=== PATIENT | female | born 1950 | race Caucasian/White ===

== ENCOUNTER 2016-08-27 18:44 | Inpatient (IN) | payer MEDICARE, OTHER ==
[~2016-08-27] VITALS: Ht 157.5 cm; Wt 56.1 kg
[~2016-08-27 18:44] MED LIST: BENA20TA48 PO; CARAS PO; LEVO75TA5 PO; PANT40TA3 PO; TYL500 PO
--- NOTE | 2016-08-27 21:13 | ERA ---
ER Documentation Chief Complaint Date/Time DATE: 08/27/16 TIME: 21:13 Chief Complaint Chronic abdominal pain HPI The patient is a 75-year-old female, presenting to the ER because of chronic epigastric abdominal pain. She was admitted in October 2015 and had extensive studies included gallbladder ultrasound, abdominal pelvic CT, abdominal pelvic CT angiogram, EGD, colonoscopy that were unremarkable except for gastritis and hemorrhoids. She feels very anxious, denies fever, chills, neck pain, chest pain, dyspnea. Abdominal pain is chronic, diffuse, minimal, no aggravating or relieving factor. She denies nausea, vomiting, dysuria, diarrhea, complaints of constipation. She does not smoke nor drink Past medical history: Hypertension, hypothyroidism, migraine, splenomegaly, GERD , gastritis Past surgical history: 3 ROS All systems reviewed and are negative except as per history of present illness. Medications Home Meds Active Scripts Pantoprazole* (Protonix*) 40 Mg Tablet.dr, 40 MG PO BID for 30 Days, TAB Prov:TIBURC[employer] 10/28/15 Reported Medications Benazepril Hcl* (Benazepril Hcl*) 40 Mg Tablet, 40 MG PO DAILY, #30 TAB 08/27/16 Levothyroxine Sodium* (Levothyroxine Sodium*) 75 Mcg Tablet, 75 MCG PO BEFORE BREAKFAST, #30 TAB 10/24/15 Discontinued Reported Medications Benazepril Hcl* (Benazepril Hcl*) 20 Mg Tablet, 20 MG PO DAILY, #30 TAB 10/24/15 Acetaminophen* (Tylenol*) 500 Mg Tab, 500 MG PO Q4H Y for MILD PAIN LEVEL 1-3, TAB 10/24/15 Discontinued Scripts Sucralfate* (Carafate*) 1 Gm/10 Ml Susp, 1 GM PO QID for 30 Days, EA Prov:TIBUR[employer]IO [employer] 10/28/15 Allergies Allergies: Coded Allergies: No Known Allergies (Verified Allergy, Unknown, 02/20/15) PMhx/Soc History of Surgery: Yes ( x3) Anesthesia Reaction: No Hx Neurological Disorder: No Hx Respiratory Disorders: No Hx Cardiac Disorders: Yes (htn, ) Hx Psychiatric Problems: No Hx Miscellaneous Medical Probl: No (migraine) Hx Alcohol Use: No Hx Substance Use: No Hx Tobacco Use: No Physical Exam Vitals Vital Signs Date Time Temp Pulse Resp B/P Pulse Ox O2 Delivery O2 Flow Rate FiO2 08/28/16 01:00 73 16 132/69 100 Room Air 08/27/16 19:15 98.9 84 20 170/80 97 Physical Exam Const: No acute distress. Head: Atraumatic. Eyes: Normal Conjunctiva. ENT: Normal External Ears, Nose and Mouth. Neck: Full range of motion. No meningismus. Resp: Clear to auscultation bilaterally. Cardio: Regular rate and rhythm. Abd: Soft, non distended, normal bowel sounds, minimal epigastric discomfort, no right lower quadrant, right upper quadrant, CVA, rigidity, rebound tenderness Skin: No petechiae or rashes. Back: No midline or flank tenderness. Ext: No cyanosis, or edema. Neur: Awake and alert. No focal deficit Psych: Normal Mood and Affect. Result Diagram: 08/27/16213308/27/162133 Results 24 hrs Laboratory Tests Test 08/27/16 21:34 08/27/16 21:40 White Blood Count 16.510^3/ul Red Blood Count 4.5510^6/ul Hemoglobin 13.7g/dl Hematocrit 40.9% Mean Corpuscular Volume 89.9fl Mean Corpuscular Hemoglobin 30.1pg Mean Corpuscular Hemoglobin Concent 33.5g/dl Red Cell Distribution Width 12.7% Platelet Count 92500^3/UL Mean Platelet Volume 10.2fl Neutrophils % 59.0% Lymphocytes % 40.0% Monocytes % 1.0% Neutrophils # 9.710^3/ul Lymphocytes # 6.610^3/ul Monocytes # 0.210^3/ul Sodium Level 145mmol/L Potassium Level 4.3mmol/L Chloride Level 103mmol/L Carbon Dioxide Level 28mmol/L Anion Gap 18 Blood Urea Nitrogen 14mg/dl Creatinine 0.72mg/dl Glucose Level 133mg/dl Calcium Level 11.1mg/dl Total Bilirubin 1.1mg/dl Direct Bilirubin 0.00mg/dl Indirect Bilirubin 1.1mg/dl Aspartate Amino Transf (AST/SGOT) 22IU/L Alanine Aminotransferase (ALT/SGPT) 34IU/L Alkaline Phosphatase 88IU/L Total Protein 8.1g/dl Albumin 5.1g/dl Globulin 3.00g/dl Albumin/Globulin Ratio 1.70 Lipase 48U/L Bedside Urine pH (LAB) 5.0 Bedside Urine Protein (LAB) Negative Bedside Urine Glucose (UA) Negative Bedside Urine Ketones (LAB) 1+ Bedside Urine Blood 2+ Bedside Urine Nitrite (LAB) Negative Bedside Urine Leukocyte Esterase (L Negative Current Medications Medications (Trade) Dose Ordered Sig/Melinda Route PRN Reason Start Time Stop Time Status Last Admin Dose Admin Miscellaneous Medication (Gi Cocktail (2)) 40 ml ONCE ONCE PO 08/27/16 22:00 08/27/16 22:01 DC 08/27/16 22:04 Morphine Sulfate (morphine) 2 mg ONCE ONCE IV 08/28/16 01:00 08/28/16 01:01 DC Ondansetron HCl (Zofran Inj) 4 mg ONCE STAT IV 08/28/16 00:42 08/28/16 00:43 DC 08/28/16 01:09 Procedures/[place] [id number] Radiology Main Line: [phone] DIAGNOSTIC IMAGING REPORT Patient: JANIYA DE LEON : 1950 Age: 65 Sex: F MR #: [id number] DOS: 08/27/16 2239 Ordering MD: GREGORIO CHRISTENSEN MD Location: E/R Room/Bed: PROCEDURE: CT abdomen and pelvis without contrast. CLINICAL INDICATION: Epigastric pain TECHNIQUE: CT scan of the abdomen and pelvis without contrast was performed. Sagittal and coronal reformatted images were obtained from the axial source images. CTDI = 7.53 mGy; DLP = 378.69 mGy-cm COMPARISON: Contrast enhanced exam 10/28/2015 FINDINGS: Visualized lower thorax: The lung bases are now clear. There is no evidence for pleural effusion, previously seen effusions have resolved. Liver, gallbladder, pancreas and spleen: The liver is normal and size, contour and attenuation. There is no evidence for a liver mass or ductal dilatation. The gallbladder is unremarkable. No common bile duct abnormality is demonstrated. The pancreas is unremarkable for intrinsic abnormality although there is peripancreatic phlegmon adjacent to the body and tail. Splenomegaly is stable the maximum dimension estimated at 16 cm. There is no obvious splenic infarct, incidental posterior splenic cleft is again noted. Adrenal glands and genitourinary system: The adrenal glands are normal bilaterally. The kidneys are normal and size, contour and attenuation with no evidence for masses, calculi or hydronephrosis. The ureters are unremarkable. No urinary bladder abnormality is demonstrated. The uterus and adnexa are unremarkable for the patient's age. There is a moderate amount of free fluid in the posterior cul-de-sac slightly increased compared to the prior exam. Gastrointestinal system: The stomach is normal in caliber and without wall thickening. Severe thickening of the duodenal wall is present with surrounding inflammatory fat stranding and phlegmon within the right anterior pararenal space.. There is an ileus pattern with prominence of the jejunum the diameter estimated at 3 cm with a gas/fluid level, no complete obstruction is present The appendix and surrounding fat are within the limits of normal. The colon shows no evidence for wall thickening or acute abnormality. There is no evidence for colitis or diverticulitis. Peritoneum, retroperitoneum, lymph nodes and vessels: The abdominal aorta is normal in caliber. There is minimal aortic atherosclerotic calcification. The inferior vena cava is unremarkable. Claudia hepatis adenopathy is worse, a national sales representative lymph node estimated now at 1.4 cm, previously 1 cm. Additional 1 cm short axis retroperitoneal lymph nodes are more prominent than previously. Pelvic ascites is again mentioned, no upper abdominal ascites is seen. There is no evidence of pneumoperitoneum. Osseous structures and musculoskeletal findings: There is no fracture, lytic or blastic lesion, degenerative anterolisthesis of 06/23 from facet arthropathy is again noted. No muscular abnormality or soft tissue pathology is present. Incidental gluteal fat calcifications are demonstrated RPTAT:HJJR IMPRESSION: 1. Severe stranding of the fat surrounding the duodenum with wall thickening and increased adenopathy in the upper abdomen, retroperitoneum and claudia hepatis compared to the study of 10/28/2015. Duodenitis and / or pancreatitis are of concern without underlying duodenal mass unable to be excluded. Short- term follow-up is recommended. 2. Moderate amount of free fluid in the pelvis similar to the prior examination. 3. Jejunal ileus without bowel obstruction. 4. Stable splenomegaly. 5. Resolved bibasilar subsegmental atelectasis and pleural effusions. Physician Percy Date Time Electronically viewed and signed by Frederic Hussein Physician on 08/27/2016 23:45 JR/ CC: GREGORIO CHRISTENSEN MD MEDICAL MAKING DECISION: The patient is a 65-year-old female, presenting with acute abdominal pain, most likely due to recurrent acute duodenitis, acute hypercalcemia, thrombocytopenia. She was treated with a GI cocktail, morphine 2 mg IV for pain and Zofran 4 mg IV for nausea with good response. The differential diagnoses considered include but are not limited to cholelithiasis, cholecystitis, cystitis, pancreatitis, hepatitis, gastritis, peptic ulcer disease, gastric ulcer, appendicitis, diverticulitis, cholangitis, choledocholithiasis, partial small bowel obstruction. Departure Diagnosis: Primary Impression: Duodenitis Additional Impressions: Hypercalcemia Thrombocytopenia Condition: Stable Comments I discussed the findings with the patient. I discussed the patient with the on- call hospitalist Dr. Lira at 12:40 AM who was made aware of the lab, the treatment, the patient condition. The patient is admitted to medical surgery bed GREGORIO CHRISTENSEN MD Aug 27, 2016 21:13
[2016-08-27] MEDS ORDERED: BENA40TA41 PO (21:35)
[2016-08-27 21:38] LABS: URINE BLOOD (Dip) POC 2+ (NEGATIVE)
[2016-08-27 21:48] LABS: ADD SCAN DIFF NO
[2016-08-27 21:55] LABS: ABNORMAL IP MESSAGE 1; HEMATOCRIT 40.9 % (37.0-47.0); HEMOGLOBIN 13.7 g/dl (12.0-16.0); MEAN CORPUSCULAR HEMOGLOBIN 30.1 pg (29.0-33.0); MEAN CORPUSCULAR HGB CONC 33.5 g/dl (32.0-37.0); MEAN CORPUSCULAR VOLUME 89.9 fl (82.0-101.0); MEAN PLATELET VOLUME 10.2 fl (7.4-10.4); PLATELET COUNT 125 10^3/UL (140-415); RED BLOOD COUNT 4.55 10^6/ul (4.20-5.40); RED CELL DISTRIBUTION WIDTH 12.7 % (11.5-14.5); WHITE BLOOD COUNT 16.5 10^3/ul (4.8-10.8)
[2016-08-27] MEDS ORDERED: LIDOCAINE/MYLANTA 40 ML BTL PO ONE (22:00)
[2016-08-27 22:14] LABS: ALBUMIN 5.1 g/dl (3.3-4.9); ALBUMIN/GLOBULIN RATIO 1.7; BILIRUBIN,INDIRECT 1.1 mg/dl (0-1.1); BILIRUBIN,TOTAL 1.1 mg/dl (0.2-1.3); CALCIUM 11.1 mg/dl (8.4-10.2); CREATININE 0.72 mg/dl (0.44-1.00); POTASSIUM 4.3 mmol/L (3.5-5.1); TOTAL PROTEIN 8.1 g/dl (6.1-8.1)
[2016-08-27 22:44] LABS: LYMPHOCYTES # 6.6 10^3/ul (0.8-2.9); MONOCYTE # 0.2 10^3/ul (0.3-0.9); NEUTROPHIL # 9.7 10^3/ul (1.6-7.5)
--- NOTE | 2016-08-27 23:45 | RADRPT ---
PROCEDURE: CT abdomen and pelvis without contrast. CLINICAL INDICATION: Epigastric pain TECHNIQUE: CT scan of the abdomen and pelvis without contrast was performed. Sagittal and coronal reformatted images were obtained from the axial source images. CTDI = 7.53 mGy; DLP = 378.69 mGy-cm COMPARISON: Contrast enhanced exam 10/28/2015 FINDINGS: Visualized lower thorax: The lung bases are now clear. There is no evidence for pleural effusion, previously seen effusions have resolved. Liver, gallbladder, pancreas and spleen: The liver is normal and size, contour and attenuation. Th ere is no evidence for a liver mass or ductal dilatation. The gallbladder is unremarkable. No comm on bile duct abnormality is demonstrated. The pancreas is unremarkable for intrinsic abnormality al though there is peripancreatic phlegmon adjacent to the body and tail. Splenomegaly is stable the m aximum dimension estimated at 16 cm. There is no obvious splenic infarct, incidental posterior sple bessy cleft is again noted. Adrenal glands and genitourinary system: The adrenal glands are normal bilaterally. The kidneys are normal and size, contour and attenuation with no evidence for masses, calculi or hydronephrosis. T he ureters are unremarkable. No urinary bladder abnormality is demonstrated. The uterus and adnexa are unremarkable for the patient's age. There is a moderate amount of free fluid in the posterior cul-de-sac slightly increased compared to the prior exam. Gastrointestinal system: The stomach is normal in caliber and without wall thickening. Severe thic kening of the duodenal wall is present with surrounding inflammatory fat stranding and phlegmon with in the right anterior pararenal space.. There is an ileus pattern with prominence of the jejunum th e diameter estimated at 3 cm with a gas/fluid level, no complete obstruction is present The appendi x and surrounding fat are within the limits of normal. The colon shows no evidence for wall thicken ing or acute abnormality. There is no evidence for colitis or diverticulitis. Peritoneum, retroperitoneum, lymph nodes and vessels: The abdominal aorta is normal in caliber. The re is minimal aortic atherosclerotic calcification. The inferior vena cava is unremarkable. Claudia h epatis adenopathy is worse, a corporate sales representative lymph node estimated now at 1.4 cm, previously 1 cm. A dditional 1 cm short axis retroperitoneal lymph nodes are more prominent than previously. Pelvic as cites is again mentioned, no upper abdominal ascites is seen. There is no evidence of pneumoperiton eum. Osseous structures and musculoskeletal findings: There is no fracture, lytic or blastic lesion, deg enerative anterolisthesis of 06/23 from facet arthropathy is again noted. No muscular abnormality o r soft tissue pathology is present. Incidental gluteal fat calcifications are demonstrated RPTAT:HJJR IMPRESSION: 1. Severe stranding of the fat surrounding the duodenum with wall thickening and increased adenopath y in the upper abdomen, retroperitoneum and claudia hepatis compared to the study of 10/28/2015. Duod enitis and / or pancreatitis are of concern without underlying duodenal mass unable to be excluded. Short-term follow-up is recommended. 2. Moderate amount of free fluid in the pelvis similar to the prior examination. 3. Jejunal ileus without bowel obstruction. 4. Stable splenomegaly. 5. Resolved bibasilar subsegmental atelectasis and pleural effusions. Physician Percy Date Time Electronically viewed and signed by Physician Percy on 08/27/2016 23:45 /
[2016-08-28] MEDS ORDERED: ONDANSETRON 4 MG INJ IV STA (00:42)
[2016-08-28] MEDS ORDERED: morphine 2 MG INJ IV ONE (01:00)
[2016-08-28 01:34] VITALS: BP 159/71; RESP 18
[2016-08-28 01:41] VITALS: Ht 157.5 cm; Wt 56.1 kg
[2016-08-28] MEDS: SOD CHLORIDE 0.9% 1,000 ML IV SCH ×2 (03:48→19:01)
[2016-08-28] MEDS: ACETAMINOPHEN 325 MG TAB PO PRN ×4 (03:54→23:07)
[2016-08-28] MEDS ORDERED: morphine 4 MG/ML VIAL IV PRN (04:00)
[2016-08-28] MEDS ORDERED: morphine 2 MG INJ IV PRN (04:00)
[2016-08-28] MEDS ORDERED: NACL 0.9% 3 ML SYG IV SCH (04:00)
[2016-08-28] MEDS: metroNIDAZOLE 500 MG/NS (PMX) 100 ML IVPB SCH ×3 (04:21→20:17)
[2016-08-28] MEDS: PANTOPRAZOLE (EC) 40 MG TAB PO SCH ×2 (05:54→19:01)
[2016-08-28] MEDS: LEVOFLOXACIN 500MG/D5W (PMX) 100 ML IVPB SCH (05:54)
[2016-08-28 06:11] LABS: ADD SCAN DIFF NO
--- NOTE | 2016-08-28 06:13 | HP ---
DATE OF ADMISSION: 08/28/2016 TIME SEEN: 3 a.m. CHIEF COMPLAINT: Abdominal pain. HISTORY OF PRESENT ILLNESS: The patient is a 65-year-old female with a history of hypertension, dysl ipidemia, GERD/gastritis, hypothyroidism, dyslipidemia and duodenitis, who presented to the emergenc y department with abdominal pain. The patient stated that she has chronic abdominal pain, but this particular laparoscopic episode acutely worsened over the past few days. She reported associated na usea as well. She was also diagnosed with a UTI 3 days ago and has been prescribed Keflex, but she has not started taking it yet. She also reported feeling feverish and chills. The patient has been admitted here a few times for abdominal pain and previously had a CT abdomen and pelvis twice, one in 2014 and one in 2015. The first one in 2014 showed focal wall thickening involving the distal ri ght colon and proximal left colon, suspicious for colitis versus annular lesion/neoplasm. Her secon d CAT scan was in November of 2015, which showed mural thickening involving the duodenum, concernin g for duodenitis. Also abnormal mural thickening involving several small bowel loops with inflammat ion of the subtending mesentery was identified in the pelvis. Also a moderate amount of free fluid in the pelvis was noted, as well as borderline to mild enlarged lymph nodes in the claudia hepatis an d retroperitoneum. Today she had a CT abdomen and pelvis without contrast which showed several stra nding of the fat surrounding the duodenum with wall thickening and increased adenopathy in the upper abdomen, retroperitoneum and claudia hepatis compared to the study from November of 2015. Duodeniti s and/or pancreatitis are of concern, without underlying duodenal mass unable to be excluded. A mod erate amount of free fluid in the pelvis similar to the prior examination was also noted. Her splen omegaly is stable. When she came in, her blood pressure was 170/80, otherwise the rest of her vitals were stable. Labs show a WBC of 16.5, sodium 145, calcium 11.1, with albumin of 5.1. Patient was given morphine and Zofran while she was in the ER, as well as a liter of IV fluid, and admitted for further management and treatment. REVIEW OF SYSTEMS: A 12-point review of systems was performed and negative except as mentioned in t he HPI. PAST MEDICAL HISTORY: As per HPI. PAST SURGICAL HISTORY: . SOCIAL HISTORY: Denied a history of tobacco, alcohol or illicit drug use. ALLERGIES: NO KNOWN DRUG ALLERGIES. HOME MEDICATIONS: 1. Benazepril 2. Protonix. 3. Synthroid. PHYSICAL EXAMINATION: VITAL SIGNS: Blood pressure 115/71, heart rate 78, respiratory rate 18, temperature 98.3, oxygen sa turation 98% on room air. GENERAL: The patient looks somehow uncomfortable because of abdominal pain. HEENT: No obvious head deformity. Pupils are equal and react to light. Extraocular muscles intact. CARDIOVASCULAR: Regular rate and rhythm. No extra sounds. LUNGS: Clear. ABDOMEN: Soft, tender diffusely, with no guarding, no rebound tenderness or rigidity. There are po sitive bowel sounds. EXTREMITIES: No edema. NEUROLOGIC: No focal deficits. LABORATORY DATA: Pertinent positives as mentioned in the HPI. IMAGING: CT abdomen and pelvis from today, as well as from 2014 and 2015, are with results as menti oned in the HPI. IMPRESSION: 1. Acute on chronic abdominal pain. 2. Duodenitis/enteritis. 3. History of gastroesophageal reflux disease/gastritis. 4. Hypertension. 5. Dyslipidemia. 6. History of hypothyroidism. 7. Hypercalcemia. PLAN: The patient's abdominal pain is most likely secondary to recurrent or unresolved duodenitis/e nteritis. Her lipase is normal at 48, to suggest pancreatitis. The patient had an EGD in November of 2015 which showed severe gastritis, but the duodenum to the 3rd portion was normal on the EGD. Plan is to start her on an antibiotic and provide pain medication. I will order a CT enterography t o get high resolution imaging of the small intestine. Will consider consulting gastroenterology. A biopsy for H. pylori in 2015 was negative. The patient will be continued with a PPI. Will follow up on culture results, given the patient meets the sepsis criteria on presentation. Will continue h er home medications, with adjustment as needed. Also of note, the patient has hypercalcemia, which is known to cause abdominal pain. Will check a PTH and recheck her labs in the morning. Will consi ariel an endocrinology consult as needed. The antibiotic patient is going to be on will also address her recently diagnosed UTI, and as mentioned, will follow up on blood culture and urine culture resu lts. Further workup and management per clinical course. Dictated By: TG WEIR/ALLY Conf#: [id number] DID#: [id number]
[2016-08-28 06:28] LABS: ABNORMAL IP MESSAGE 1; HEMATOCRIT 38.9 % (37.0-47.0); HEMOGLOBIN 12.8 g/dl (12.0-16.0); MEAN CORPUSCULAR HEMOGLOBIN 29.8 pg (29.0-33.0); MEAN CORPUSCULAR HGB CONC 32.9 g/dl (32.0-37.0); MEAN CORPUSCULAR VOLUME 90.5 fl (82.0-101.0); MEAN PLATELET VOLUME 10.5 fl (7.4-10.4); PLATELET COUNT 115 10^3/UL (140-415); RED CELL DISTRIBUTION WIDTH 12.9 % (11.5-14.5); WHITE BLOOD COUNT 13.8 10^3/ul (4.8-10.8)
[2016-08-28] MEDS: LEVOTHYROXINE 75 MCG TAB PO SCH (06:34)
[2016-08-28 07:22] LABS: ALBUMIN 4.2 g/dl (3.3-4.9); ALBUMIN/GLOBULIN RATIO 1.9; BILIRUBIN,INDIRECT 1.1 mg/dl (0-1.1); BILIRUBIN,TOTAL 1.1 mg/dl (0.2-1.3); CALCIUM 10.2 mg/dl (8.4-10.2); CREATININE 0.75 mg/dl (0.44-1.00); MAGNESIUM 2.1 mg/dl (1.7-2.5); PHOSPHORUS 3.4 mg/dl (2.5-4.9); POTASSIUM 4.7 mmol/L (3.5-5.1); TOTAL PROTEIN 6.4 g/dl (6.1-8.1)
[2016-08-28 07:53] VITALS: BP 107/63; RESP 18
[2016-08-28] MEDS: BENAZEPRIL 40 MG TAB PO SCH (09:00)
[2016-08-28] MEDS ORDERED: CIPROFLOXACIN 400MG/D5W 200 ML IVPB SCH (09:00)
[2016-08-28 09:36] LABS: LYMPHOCYTES # 5.8 10^3/ul (0.8-2.9); MONOCYTE # 1.2 10^3/ul (0.3-0.9); NEUTROPHIL # 6.6 10^3/ul (1.6-7.5)
[2016-08-28 20:00] VITALS: BP 117/61; RESP 18
[2016-08-29] MEDS: metroNIDAZOLE 500 MG/NS (PMX) 100 ML IVPB SCH ×3 (05:06→20:58)
[2016-08-29 05:19] LABS: ADD SCAN DIFF NO
[2016-08-29 05:22] LABS: ABNORMAL IP MESSAGE 1; HEMATOCRIT 34.7 % (37.0-47.0); HEMOGLOBIN 11.5 g/dl (12.0-16.0); MEAN CORPUSCULAR HEMOGLOBIN 30.4 pg (29.0-33.0); MEAN CORPUSCULAR HGB CONC 33.1 g/dl (32.0-37.0); MEAN CORPUSCULAR VOLUME 91.8 fl (82.0-101.0); MEAN PLATELET VOLUME 10.3 fl (7.4-10.4); PLATELET COUNT 96 10^3/UL (140-415); RED BLOOD COUNT 3.78 10^6/ul (4.20-5.40); RED CELL DISTRIBUTION WIDTH 12.9 % (11.5-14.5); WHITE BLOOD COUNT 11.7 10^3/ul (4.8-10.8)
[2016-08-29 06:03] LABS: CALCIUM 9.9 mg/dl (8.4-10.2); CREATININE 0.74 mg/dl (0.44-1.00); MAGNESIUM 2.1 mg/dl (1.7-2.5); PHOSPHORUS 2.7 mg/dl (2.5-4.9); POTASSIUM 4.4 mmol/L (3.5-5.1)
[2016-08-29] MEDS: LEVOTHYROXINE 75 MCG TAB PO SCH (06:06)
[2016-08-29] MEDS: PANTOPRAZOLE (EC) 40 MG TAB PO SCH ×2 (06:06→17:25)
[2016-08-29] MEDS: ACETAMINOPHEN 325 MG TAB PO PRN ×2 (06:08→21:00)
[2016-08-29] MEDS: LEVOFLOXACIN 500MG/D5W (PMX) 100 ML IVPB SCH (06:09)
[2016-08-29] MEDS: ONDANSETRON 4 MG INJ IV PRN ×2 (07:47→20:58)
[2016-08-29 08:32] VITALS: BP 128/69; RESP 16
[2016-08-29] MEDS: BENAZEPRIL 40 MG TAB PO SCH (08:52)
[2016-08-29 09:51] LABS: LYMPHOCYTES # 8.5 10^3/ul (0.8-2.9); MONOCYTE # 0.4 10^3/ul (0.3-0.9); NEUTROPHIL # 2.8 10^3/ul (1.6-7.5)
--- NOTE | 2016-08-29 11:16 | CONS ---
Date/Time of Note Date/Time of Note DATE: 08/29/16 TIME: 10:49 Assessment/Plan Assessment/Plan Additional Assessment/Plan Assessment * Abdominal pain chronic(?) CT abdomen /Pelvis Severe stranding of the fat surrounding the duodenum with wall thickening and increased adenopathy in the upper abdomen, retroperitoneum and claudia hepatis compared to the study of 10/28/2015. Duodenitis and / or pancreatitis are of concern without underlying duodenal mass unable to be . excluded Moderate amount of free fluid in the pelvis similar to the prior examination. . Jejunal ileus without bowel obstruction. Stable splenomegaly. * Hypertension * History of hypothyroidism Plan * EGD Tuesday risks and benefit explained to patient and agreed with the planned procedure * MRCP * PPI daily * Further recommendation will depend on clinical course Consultation Date/Type/Reason Admit Date/Time Aug 28, 2016 at 13:05 Date of Consultation: Aug 29, 2016 Type of Consultation: Gastroenterology Reason for Consultation duodenitis Referring Provider: SHASTA JACKSON Hx of Present Illness 65 year old female with past medical history of hypertension,hypothyroidism, dyslipidemia,GERD/gastritis and duodenitis who presented in our emergency room because of abdominal pain.She claims that the pain is a chronic ,occurring on and ff with associated nausea and vomiting.She claims that her condition becoming worse 3 days ago promoting consultation at the emergency room.She denies chest pain,shortness of breath,fever ,hematemesis,melena nor hematochezias.She had multiple admission ,the latest was October 2015 where an EGD revealed Severe gastritis, rule out Helicobacter pylori infection, biopsies obtained. Normal duodenum to the 3rd portion.Colonoscopy results Normal colonic mucosa to cecum. Random biopsies obtained, rule out microscopic lymphocytic or collagenous colitis.Normal terminal ileum.Moderate size internal hemorrhoids.Ct enterography 10/2015 revealed 1. Mild atelectasis at the lung bases posteriorly. 2. Small bilateral pleural effusions, new when compared with prior study. 3. Splenomegaly, unchanged. 4. Atherosclerosis. 5. Multiple mildly enlarged retroperitoneal lymph nodes and claudia hepatis lymph nodes, unchanged. 6. Diffuse thickening of the wall of the duodenum, unchanged. 7. Thickening of the wall of the small bowel seen on the prior study is no longer visualized. 8. Small amount of free fluid in the pelvis. 9. Degenerative changes of the spine. 10. Otherwise unremarkable study. Emergency room course,a repeat CT scan showed 1. Severe stranding of the fat surrounding the duodenum with wall thickening and increased adenopathy in the upper abdomen, retroperitoneum and claudia hepatis compared to the study of 10/28/2015. Duodenitis and / or pancreatitis are of concern without underlying duodenal mass unable to be excluded. Short- term follow-up is recommended. 2. Moderate amount of free fluid in the pelvis similar to the prior examination. 3. Jejunal ileus without bowel obstruction. 4. Stable splenomegaly. 5. Resolved bibasilar subsegmental atelectasis and pleural effusions. Presently,abdominal pain improved ,no nausea nor vomiting.Latest WBC 11.7, hemoglobin 11.5,Hematocrit 34.7,AST 18,ALT 25 and alkaline phosphatase 65. I have discussed with the patient the planned to d EGD tomorrow and MRI of abdomen Constitutional: improved, no complaints Eyes: no complaints ENT: no complaints Respiratory: no complaints Cardiovascular: no complaints Gastrointestinal: nausea, pain, vomiting Genitourinary: no complaints Musculoskeletal: no complaints Skin: no complaints Neurologic: no complaints Endocrine: no complaints Lymphatic: no complaints Psychological: nl mood/affect, no complaints Immunologic: no complaints Past Medical History Medical History: GERD, hypertension, hypothyroid, urinary tract infection, other (duodenitis) Past Surgical History Past Surgical Hx: endoscopy Family History Significant Family History: no pertinent family hx Social History Alcohol Use: none Smoking Status: Never smoker Exam/Review of Systems Vital Signs Vitals Vital Signs Date Time Temp Pulse Resp B/P Pulse Ox O2 Delivery O2 Flow Rate FiO2 08/29/16 08:32 98.2 76 16 128/69 97 08/28/16 01:00 Room Air Intake and Output 08/28/16 08/28/16 08/29/16 15:00 23:00 07:00 Intake Total 100 ml 1670 ml 640 ml Output Total 1000 ml Balance 100 ml 670 ml 640 ml Exam Constitutional: alert, oriented, well developed Psych: nl mood/affect Head: atraumatic, normocephalic Eyes: PERRL, nl conjunctiva, nl sclera ENMT: nl nasal mucosa & septum Neck: non-tender, supple Respiratory: clear to auscultation, normal air movement Cardiovascular: nl pulses, regular rate and rhythm Gastrointestinal: nl liver, spleen, non-tender, soft Musculoskeletal: nl extremities to inspection, nl gait and stance Extremities: normal pulses Neurological: nl mental status, nl speech, nl strength Skin: nl turgor, No rash or lesions Lymph: nl lymph nodes Results Result Diagram: 08/29/1643908/29/16 0440 Results 24 hrs Laboratory Tests Test 08/29/16 04:40 White Blood Count 11.7 H Red Blood Count 3.78 L Hemoglobin 11.5 L Hematocrit 34.7 L Mean Corpuscular Volume 91.8 Mean Corpuscular Hemoglobin 30.4 Mean Corpuscular Hemoglobin Concent 33.1 Red Cell Distribution Width 12.9 Platelet Count 96 L Mean Platelet Volume 10.3 Neutrophils % 24.0 L Lymphocytes % 73.0 H Monocytes % 3.0 Neutrophils # 2.8 Lymphocytes # 8.5 H Monocytes # 0.4 Sodium Level 144 Potassium Level 4.4 Chloride Level 110 Carbon Dioxide Level 28 Anion Gap 10 Blood Urea Nitrogen 12 Creatinine 0.74 Glucose Level 98 Calcium Level 9.9 Phosphorus Level 2.7 Magnesium Level 2.1 Medications Medications Current Medications Ondansetron HCl (Zofran Inj) 4 mg Q6H PRN IV NAUSEA AND/OR VOMITING Last administered on 08/29/16 07:47; Admin Dose 4 MG; Start 08/28/16 at 04:00 Acetaminophen (Tylenol Tab) 650 mg Q6H PRN PO PAIN LEVEL 1-3 OR FEVER Last administered on 08/29/16 06:08; Admin Dose 650 MG; Start 08/28/16 at 04:00 Benazepril HCl (Lotensin) 40 mg DAILY PO ; Start 08/28/16 at 09:00 Pantoprazole 40 mg 40 mg BID@06,18 PO Last administered on 08/29/16 06:06; Admin Dose 40 MG; Start 08/28/16 at 06:00 Metronidazole (Flagyl 500 Mg (Pmx)) 100 ml @ 100 mls/hr Q8H IVPB Last administered on 08/29/16 05:06; Admin Dose 100 MLS/HR; Start 08/28/16 at 05:00 Morphine Sulfate 4 mg 4 mg Q4H PRN IV SEVERE PAIN LEVEL 7-10; Start 08/28/16 at 04:00 Levofloxacin/ Dextrose (Levaquin 500mg/ D5W 100 ml (Pmx)) 100 ml @ 100 mls/hr Q24H IVPB Last administered on 6/11/17at 06:09; Admin Dose 100 MLS/HR; Start at 06:00 COOPER TORRES MD Aug 29, 2016 10:59
--- NOTE | 2016-08-29 11:21 | PN ---
Date/Time of Note Date/Time of Note DATE: 08/29/16 TIME: 11:18 Assessment/Plan VTE Prophylaxis VTE Prophylaxis Intervention: SCD's Lines/Catheters IV Catheter Type (from Nrsg): Peripheral IV Assessment/Plan Chief Complaint/Hosp Course 1. Acute on chronic abdominal pain secondary to duodenitis GI consult appreciated, plan is for EGD tomorrow Continue Levaquin and Flagyl 2. Hypertension Continue home benazepril 3. History of gastroesophageal reflux disease/gastritis Continue home Protonix 4. History of hypothyroidism Continue home Synthroid 5. Hypercalcemia-resolved Prophylaxis: SCDs Problems: Subjective 24 Hr Interval Summary Gastrointestinal: pain Exam/Review of Systems Vital Signs Vitals Vital Signs Date Time Temp Pulse Resp B/P Pulse Ox O2 Delivery O2 Flow Rate FiO2 08/29/16 08:32 98.2 76 16 128/69 97 08/28/16 01:00 Room Air Intake and Output 08/28/16 08/28/16 08/29/16 15:00 23:00 07:00 Intake Total 100 ml 1670 ml 640 ml Output Total 1000 ml Balance 100 ml 670 ml 640 ml Exam Constitutional: alert, oriented Respiratory: clear to auscultation Cardiovascular: regular rate and rhythm Gastrointestinal: soft, tender, No distended Musculoskeletal: nl extremities to inspection Results Result Diagram: 08/29/16 0440 08/29/16 0440 Results 24 hrs Laboratory Tests Test 08/29/16 04:40 White Blood Count 11.7 H Red Blood Count 3.78 L Hemoglobin 11.5 L Hematocrit 34.7 L Mean Corpuscular Volume 91.8 Mean Corpuscular Hemoglobin 30.4 Mean Corpuscular Hemoglobin Concent 33.1 Red Cell Distribution Width 12.9 Platelet Count 96 L Mean Platelet Volume 10.3 Neutrophils % 24.0 L Lymphocytes % 73.0 H Monocytes % 3.0 Neutrophils # 2.8 Lymphocytes # 8.5 H Monocytes # 0.4 Sodium Level 144 Potassium Level 4.4 Chloride Level 110 Carbon Dioxide Level 28 Anion Gap 10 Blood Urea Nitrogen 12 Creatinine 0.74 Glucose Level 98 Calcium Level 9.9 Phosphorus Level 2.7 Magnesium Level 2.1 Medications Medications Current Medications Ondansetron HCl (Zofran Inj) 4 mg Q6H PRN IV NAUSEA AND/OR VOMITING Last administered on 08/29/16t 07:47; Admin Dose 4 MG; Start 08/28/16 at 04:00 Acetaminophen (Tylenol Tab) 650 mg Q6H PRN PO PAIN LEVEL 1-3 OR FEVER Last administered on 08/29/16 06:08; Admin Dose 650 MG; Start 08/28/16 at 04:00 Benazepril HCl (Lotensin) 40 mg DAILY PO ; Start 08/28/16 at 09:00 Pantoprazole 40 mg 40 mg BID@06,18 PO Last administered on 08/29/16 06:06; Admin Dose 40 MG; Start 08/28/16 at 06:00 Metronidazole (Flagyl 500 Mg (Pmx)) 100 ml @ 100 mls/hr Q8H IVPB Last administered on 08/29/16 05:06; Admin Dose 100 MLS/HR; Start 08/28/16 at 05:00 Morphine Sulfate 4 mg 4 mg Q4H PRN IV SEVERE PAIN LEVEL 7-10; Start 08/28/16 at 04:00 Levofloxacin/ Dextrose (Levaquin 500mg/ D5W 100 ml (Pmx)) 100 ml @ 100 mls/hr Q24H IVPB Last administered on 08/29/16 06:09; Admin Dose 100 MLS/HR; Start at 06:00 SHASTA JACKSON Aug 29, 2016 11:21
--- NOTE | 2016-08-29 14:31 | RADRPT ---
PROCEDURE: MRCP. CLINICAL INDICATION: Right upper quadrant pain. TECHNIQUE: MRCP was performed on the a high-resolution, high Jelena field strength scanner. Patien t was examined without contrast. 3-D coronal rotating MIP images of the biliary tree are available for review. COMPARISON: CT abdomen and pelvis 08/27/2016. FINDINGS: Gallbladder is unremarkable. The biliary tree is not dilated. No intrahepatic nor extrahepatic bili robyn dilatation is present. No filling defect or choledocholithiasis is seen. There is no stricture o r obstruction. The pancreatic duct, as visualized, is equally unremarkable. There has been significa nt interval improvement of inflammatory changes centered around the third portion of the duodenum/un cinate process of the pancreas. There is moderate splenomegaly. Multiple mildly enlarged lymph nod es in the upper abdomen are again identified. IMPRESSION: 1. No biliary ductal dilatation. No CBD stones. No gallstones. 2. Significant interval improvement of inflammatory changes centered around the third portion of th e duodenum/uncinate process of the pancreas. 3. Moderate splenomegaly. 4. Unchanged multiple mildly enlarged lymph nodes in the upper abdomen. RPTAT: PP .Keena Heart MD, Date Time Electronically viewed and signed by .Keena Heart MD, on 08/29/2016 14:31 .O/
[2016-08-29 19:45] VITALS: BP 133/66; RESP 16
[2016-08-30] VITALS (13 sets, daily range): BP systolic 118–165; BP diastolic 61–76; PULSE 70–87; RESP 13–20
[2016-08-30] MEDS: metroNIDAZOLE 500 MG/NS (PMX) 100 ML IVPB SCH ×3 (04:32→20:11)
[2016-08-30] MEDS: LEVOFLOXACIN 500MG/D5W (PMX) 100 ML IVPB SCH (05:49)
[2016-08-30] MEDS: ACETAMINOPHEN 325 MG TAB PO PRN ×2 (05:54→20:11)
[2016-08-30] MEDS: PANTOPRAZOLE (EC) 40 MG TAB PO SCH ×2 (05:54→18:32)
[2016-08-30] MEDS: ONDANSETRON 4 MG INJ IV PRN ×2 (05:58→20:11)
[2016-08-30 06:11] LABS: ADD SCAN DIFF NO
[2016-08-30 06:15] LABS: ABNORMAL IP MESSAGE 1; HEMATOCRIT 33.7 % (37.0-47.0); HEMOGLOBIN 11.2 g/dl (12.0-16.0); MEAN CORPUSCULAR HEMOGLOBIN 30.4 pg (29.0-33.0); MEAN CORPUSCULAR HGB CONC 33.2 g/dl (32.0-37.0); MEAN CORPUSCULAR VOLUME 91.6 fl (82.0-101.0); MEAN PLATELET VOLUME 10.5 fl (7.4-10.4); PLATELET COUNT 98 10^3/UL (140-415); RED BLOOD COUNT 3.68 10^6/ul (4.20-5.40); RED CELL DISTRIBUTION WIDTH 12.9 % (11.5-14.5); WHITE BLOOD COUNT 11.4 10^3/ul (4.8-10.8)
[2016-08-30] MEDS: LEVOTHYROXINE 75 MCG TAB PO SCH (06:35)
[2016-08-30] MEDS: BENAZEPRIL 40 MG TAB PO SCH (08:27)
[2016-08-30 09:54] LABS: LYMPHOCYTES # 7.1 10^3/ul (0.8-2.9); MONOCYTE # 0.1 10^3/ul (0.3-0.9); NEUTROPHIL # 3.8 10^3/ul (1.6-7.5)
[2016-08-30 10:03] LABS: CALCIUM 10.4 mg/dl (8.4-10.2); CREATININE 0.75 mg/dl (0.44-1.00); POTASSIUM 4.4 mmol/L (3.5-5.1)
[2016-08-30] MEDS ORDERED: PROPOFOL 40 ML ONE (17:00)
[2016-08-30] MEDS ORDERED: ALBUTEROL 0.083% (NEB) 2.5 MG/3 ML AMP ONE (17:25)
[2016-08-30] MEDS ORDERED: DEXAMETHASONE 4 MG/ML 1 ML INJ ONE (17:37)
[2016-08-30] MEDS ORDERED: HYOSCYAMINE 0.125 MG SUBL TAB SL PRN (18:30)
--- NOTE | 2016-08-30 19:17 | PN ---
Date/Time of Note Date/Time of Note DATE: 08/30/16 TIME: 19:16 Assessment/Plan VTE Prophylaxis VTE Prophylaxis Intervention: SCD's Lines/Catheters IV Catheter Type (from Nrsg): Peripheral IV Assessment/Plan Assessment/Plan 1. Acute on chronic abdominal pain secondary to duodenitis S/p GI consult, plan for EGD today Continue Levaquin and Flagyl 2. Hypertension Continue home benazepril 3. History of gastroesophageal reflux disease/gastritis Continue home Protonix 4. History of hypothyroidism Continue home Synthroid 5. Hypercalcemia-resolved Plan for EGD today Prophylaxis: SCDs Exam/Review of Systems Vital Signs Vitals Vital Signs Date Time Temp Pulse Resp B/P Pulse Ox O2 Delivery O2 Flow Rate FiO2 08/30/16 17:44 72 15 134/68 96 Room Air 08/30/16 17:23 98.0 08/30/16 17:06 12 Intake and Output 08/29/16 08/29/16 08/30/16 15:00 23:00 07:00 Intake Total 100 ml 860 ml 500 ml Balance 100 ml 860 ml 500 ml Exam Constitutional: alert, oriented Respiratory: clear to auscultation Cardiovascular: regular rate and rhythm Gastrointestinal: soft, tender, No distended Musculoskeletal: nl extremities to inspection Results Result Diagram: 08/30/16 0445 08/30/16 0445 Results 24 hrs Laboratory Tests Test 08/30/16 04:45 White Blood Count 11.4 H Red Blood Count 3.68 L Hemoglobin 11.2 L Hematocrit 33.7 L Mean Corpuscular Volume 91.6 Mean Corpuscular Hemoglobin 30.4 Mean Corpuscular Hemoglobin Concent 33.2 Red Cell Distribution Width 12.9 Platelet Count 98 L Mean Platelet Volume 10.5 H Neutrophils % 33.0 L Lymphocytes % 62.0 H Reactive Lymphocytes % 4.0 Monocytes % 1.0 Neutrophils # 3.8 Lymphocytes # 7.1 H Monocytes # 0.1 L Sodium Level 144 Potassium Level 4.4 Chloride Level 111 H Carbon Dioxide Level 27 Anion Gap 10 Blood Urea Nitrogen 12 Creatinine 0.75 Glucose Level 92 Calcium Level 10.4 H Medications Medications Current Medications Ondansetron HCl (Zofran Inj) 4 mg Q6H PRN IV NAUSEA AND/OR VOMITING Last administered on 08/30/16t 05:58; Admin Dose 4 MG; Start 08/28/16 at 04:00 Acetaminophen (Tylenol Tab) 650 mg Q6H PRN PO PAIN LEVEL 1-3 OR FEVER Last administered on 08/30/16 05:54; Admin Dose 650 MG; Start 08/28/16 at 04:00 Benazepril HCl (Lotensin) 40 mg DAILY PO ; Start 08/28/16 at 09:00 Pantoprazole 40 mg 40 mg BID@,18 PO Last administered on 08/30/16 18:32; Admin Dose 40 MG; Start 08/28/16 at 06:00 Metronidazole (Flagyl 500 Mg (Pmx)) 100 ml @ 100 mls/hr Q8H IVPB Last administered on 08/30/16 12:18; Admin Dose 100 MLS/HR; Start 08/28/16 at 05:00 Morphine Sulfate 4 mg 4 mg Q4H PRN IV SEVERE PAIN LEVEL 7-10; Start 08/28/16 at 04:00 Levofloxacin/ Dextrose (Levaquin 500mg/ D5W 100 ml (Pmx)) 100 ml @ 100 mls/hr Q24H IVPB Last administered on 08/30/16 05:49; Admin Dose 100 MLS/HR; Start at 06:00 Hyoscyamine (Levsin (Sl)) 0.125 mg Q4H PRN SL abd pain; Start 08/30/16 at 18:30 PERLITA FABIAN MD Aug 30, 2016 19:17
[2016-08-31] MEDS: metroNIDAZOLE 500 MG/NS (PMX) 100 ML IVPB SCH ×2 (04:37→12:17)
[2016-08-31] MEDS: LEVOFLOXACIN 500MG/D5W (PMX) 100 ML IVPB SCH (05:38)
[2016-08-31] MEDS: PANTOPRAZOLE (EC) 40 MG TAB PO SCH (05:38)
--- NOTE | 2016-08-31 06:34 | GILP ---
DATE OF PROCEDURE: 08/30/2016 NAME OF PROCEDURE: Esophagogastroduodenoscopy with biopsies. SURGEON: Cooper Reid MD HISTORY AND INDICATIONS: The patient is being evaluated for abdominal pain and abnormal CT with que stionable duodenitis or possible duodenal infiltrative process. PREMEDICATION: Monitored anesthesia care by anesthesiologist. INSTRUMENT USED: Olympus panendoscope. TECHNIQUE: After informed consent, with the patient/relatives understanding the procedure, its cassidy cations, potential risks and complications including but not limited to allergic reaction, bleeding, perforation or infection, and after all pertinent questions were answered to the patients satisfact ion, the patient/relatives signed witnessed informed consent. Following this, premedication was administered slowly IV push under careful cardiovascular and respi ratory monitoring with pulse oximetry, automatic blood pressure and monitoring analyst. Once the sedative effect was achieved the patient was place in the left lateral decubitus, the panen doscope was introduced and advanced under visual control. Careful examination of the upper gastrointestinal tract both on insertion as well as withdrawal of t he instrument disclosed the following findings: ESOPHAGUS: Distal esophagus shows erythema and edema of the mucosa of a moderate degree. STOMACH: Upon entrance to the stomach, air was insufflated. The gastric hicks distended normally. There is atrophic appearance with erythema and edema of the mucosa. Biopsies were obtained to rule out H. pylori infection or other infiltrative process. PYLORUS: The pylorus appears patent and within normal limits, with no evidence of gastric outlet ob struction. DUODENUM: Appears normal in the duodenal bulb, second portion of the duodenum and deep into what ap pears to be the third portion of the duodenum, possible jejunum. Biopsies were obtained randomly to rule out infiltrative process or other pathological process. The instrument was withdrawn, re-exam ining the mucosa in detail. No additional abnormalities are noted. The instrument was then withdrawn. The patient tolerated the procedure well and was transferred out of the endoscopy suite awake and in good condition to continue recovery under observation. IMPRESSION: 1. Esophagitis. 2. Hiatal hernia, small. 3. Atopic gastropathy. Biopsies obtained. 4. Normal small bowel to jejunum. Biopsies obtained. PLAN: The patient will be continued on present regimen. Pathology will be reviewed as soon as kalen lable. The patient will continue PPIs, and Levsin will be added to her regimen for pain management. Dictated By: COOPER REID MS/NTS Conf#: [id number] DID#: [id number]
[2016-08-31] MEDS: LEVOTHYROXINE 75 MCG TAB PO SCH (06:40)
[2016-08-31 07:15] VITALS: BP 138/72; RESP 16
[2016-08-31] MEDS: ACETAMINOPHEN 325 MG TAB PO PRN (07:52)
[2016-08-31] MEDS: BENAZEPRIL 40 MG TAB PO SCH (08:14)
--- NOTE | 2016-08-31 12:56 | PDOCDIS ---
Discharge Instructions CONDITION Patient Condition: Good HOME CARE INSTRUCTIONS: Special Diet: Regular ACTIVITY: Activity Restrictions: Slowly Increase Activity Rest between Activity Avoid heavy lifting Avoid Heavy Housework FOLLOW UP/APPOINTMENTS Appointments follow up with her own PMD through HMO insurance in 1-2 week after discharge PERLITA FABIAN MD Aug 31, 2016 12:56
[2016-08-31] MEDS ORDERED: PANT40TA3 PO (12:57)
[2016-08-31] MEDS ORDERED: METO10TA92 PO (12:57)
== END 2016-08-31 15:06 | disposition home health service (06) | DRG 392 ==
LOC: E/R 18:44 → INTOOBSV 08-28 00:44 → PP2 08-28 00:44 → OBSVTOIN 08-28 13:05
PROVIDERS: ADMIT Internal Medicine; ATTEND Internal Medicine
PROC: 0DB78ZX Excision of Stomach, Pylorus, Via Natural or Artificial Opening Endoscopic, Diagnostic (ICD-10-PCS; 2016-08-30)
PROC: 0DB98ZX Excision of Duodenum, Via Natural or Artificial Opening Endoscopic, Diagnostic (ICD-10-PCS; principal; 2016-08-30 20:00)
DX: K29.80 Duodenitis without bleeding (principal); D69.6 Thrombocytopenia, unspecified; K29.70 Gastritis, unspecified, without bleeding; I10 Essential (primary) hypertension; E03.9 Hypothyroidism, unspecified; K21.9 Gastro-esophageal reflux disease without esophagitis; G43.909 Migraine, unspecified, not intractable, without status migrainosus; R16.1 Splenomegaly, not elsewhere classified; E83.52 Hypercalcemia; E78.5 Hyperlipidemia, unspecified; K20.9 Esophagitis, unspecified; K31.9 Disease of stomach and duodenum, unspecified
CPT/HCPCS: 36415; 74176; 74181; 80048; 80053; 81003; 83690; 83735; 83970; 84100; 84443; 85025; 87040; 87086; 88305; 88312; 96374; 99217; G0378; J1100; J1956; J2405; J7030

== ENCOUNTER 2016-09-13 19:52 | Emergency (ER) | payer MEDICARE, OTHER ==
[~2016-09-13] VITALS: Ht 157.5 cm; Wt 56.5 kg
[~2016-09-13 19:52] MED LIST changes: -BENA20TA48 PO; +BENA40TA41 PO; -CARAS PO; +METO10TA92 PO; -TYL500 PO
[2016-09-13 19:54] VITALS: Ht 157.5 cm; Wt 56.5 kg
[2016-09-13 20:28] LABS: URINE BLOOD (Dip) POC 1+ (NEGATIVE)
[2016-09-13] MEDS ORDERED: CEPH-443 PO (21:25)
[2016-09-13] MEDS ORDERED: ACET325T33 PO (21:26)
--- NOTE | 2016-09-13 21:51 | ERD ---
ER Documentation Chief Complaint Date/Time DATE: 09/13/16 TIME: 21:47 Chief Complaint painful urination x 2 days HPI 65-year-old female patient with a past medical history of duodenitis, GERD, hypertension, dyslipidemia, hypothyroidism presents the ED complaining of dysuria that started 2 days ago. Reports that he feels like a burning sensation. States that usually when she takes Keflex, the sensation and pain improves. States that she also has some slight suprapubic pain. Reports that she has some slight chills and feels like she has some left-sided flank pain. Denies any abdominal pain, nausea, vomiting, diarrhea, vaginal bleeding, vaginal discharge, constipation. ROS All systems reviewed and are negative except as per history of present illness. Medications Home Meds Active Scripts Acetaminophen* (Tylenol*) 325 Mg Tablet, 1 TAB PO Q6 Y for PAIN AND OR ELEVATED TEMP, #20 TAB Prov:AMEYA KIRK PA-C 09/13/16 Cephalexin* (Keflex*) 500 Mg Capsule, 500 MG PO QID for 7 Days, CAP Prov:AMEYA KIRK PA-C 09/13/16 Metoclopramide* (Reglan*) 10 Mg Tablet, 10 MG PO Q6H Y for NAUSEA AND OR VOMITING, #30 TAB Prov:PERLITA FABIAN MD 08/31/16 Pantoprazole* (Protonix*) 40 Mg Tablet.dr, 40 MG PO DAILY, #90 TAB Prov:PERLITA FABIAN MD 08/31/16 Reported Medications Benazepril Hcl* (Benazepril Hcl*) 40 Mg Tablet, 40 MG PO DAILY, #30 TAB 08/27/16 Levothyroxine Sodium* (Levothyroxine Sodium*) 75 Mcg Tablet, 75 MCG PO BEFORE BREAKFAST, #30 TAB 10/24/15 Allergies Allergies: Coded Allergies: No Known Allergies (Verified Allergy, Unknown, 02/20/15) PMhx/Soc History of Surgery: Yes () Anesthesia Reaction: No Hx Neurological Disorder: No Hx Respiratory Disorders: No Hx Cardiac Disorders: Yes (HTN) Hx Psychiatric Problems: No Hx Miscellaneous Medical Probl: No Hx Alcohol Use: No Hx Substance Use: No Hx Tobacco Use: No Smoking Status: Never smoker Physical Exam Vitals Vital Signs Date Time Temp Pulse Resp B/P Pulse Ox O2 Delivery O2 Flow Rate FiO2 09/13/16 19:54 98.3 89 20 159/72 98 Physical Exam Const: Kis-lbb-[id number], well-nourished. In no acute distress. Head: Atraumatic, normocephalic Eyes: Normal Conjunctiva without injection. No purulent discharge. ENT: Normal external ear, nose. Moist oropharynx without tonsillar exudates. Non -erythematous pharynx. Uvula midline. No drooling. No trismus. Neck: No cervical midline tenderness. Full range of motion. No meningismus. No cervical lymphadenopathy. No JVD. Resp: Clear to auscultation bilaterally. No wheezing, rhonchi, rales, or crackles. No accessory muscle use. No retractions. Cardio: Regular rate and rhythm. No murmurs, rubs or gallops. Abd: Soft, nontender, non distended. Normal bowel sounds. No palpable masses. No rebound tenderness. No guarding. Negative McBurney's point. Negative psoas sign. Negative obturator sign. Skin: No petechiae or rashes Back: No midline tenderness. No CVA tenderness. Ext: No cyanosis, or edema. Neur: Awake and alert. Normal gait. Normal coordination. Psych: Normal Mood and Affect Results 24 hrs Laboratory Tests Test 09/13/16 20:32 Bedside Urine pH (LAB) 7.0 Bedside Urine Protein (LAB) Negative Bedside Urine Glucose (UA) Negative Bedside Urine Ketones (LAB) Negative Bedside Urine Blood 1+ Bedside Urine Nitrite (LAB) Negative Bedside Urine Leukocyte Esterase (L Trace Procedures/MDM This is a 65-year-old female patient with a past medical history of doing tinnitus, GERD, hypertension, dyslipidemia, hypothyroidism presents the ED complaining of dysuria that started 2 days ago. Patient is afebrile and nontoxic-appearing. Patient reports that this feels like a urinary tract infection. States that she has no symptoms consistent with her duodenitis. Trace leukocyte esterase, 1+ hematuria noted on urine dip. Pending urine culture. Patient symptoms are likely secondary to urinary tract infection and possibly early pyelonephritis and she feels feverish at home and chills. Low suspicion for gastritis, GERD, peptic ulcer disease, cholecystitis, choledocholithiasis, cholangitis, pancreatitis, appendicitis, bowel obstruction , ileus, volvulus, nephrolithiasis, pyelonephritis, hepatitis, perforated viscus , diverticulitis, abdominal hernia, acute abdomen, mesenteric ischemia or other emergent conditions. Discharge medications: Tylenol, Keflex Follow up with primary care physician in 1-2 days for referral to crystalizer tender. Instructed patient to return to the ED sooner for any worsening symptoms. Patient's questions were answered. Patient understood and agreed with discharge plan. Patient discharged stable. Departure Diagnosis: Primary Impression: Dysuria Condition: Stable Patient Instructions: Dysuria Referrals: [facility] YOU HAVE RECEIVED A MEDICAL SCREENING EXAM AND THE RESULTS INDICATE THAT YOU DO NOT HAVE A CONDITION THAT REQUIRES URGENT TREATMENT IN THE EMERGENCY DEPARTMENT. FURTHER EVALUATION AND TREATMENT OF YOUR CONDITION CAN WAIT UNTIL YOU ARE SEEN IN YOUR DOCTORS OFFICE WITHIN THE NEXT 1-2 DAYS. IT IS YOUR RESPONSIBILITY TO MAKE AN APPOINTMENT FOR FOLOW-UP CARE. IF YOU HAVE A PRIMARY DOCTOR --you should call your primary doctor and schedule an appointment IF YOU DO NOT HAVE A PRIMARY DOCTOR YOU CAN CALL OUR PHYSICIAN REFERRAL HOTLINE AT IF YOU CAN NOT AFFORD TO SEE A PHYSICIAN YOU CAN CHOSE FROM THE FOLLOWING [facility] [address] [facility]. [facility] [address] [facility]. [email or web address] [address] [facility] [facility] [address] [facility] [facility] [address] [facility]. [facility]. [address] [facility]. [facility] YOU HAVE RECEIVED A MEDICAL SCREENING EXAM AND THE RESULTS INDICATE THAT YOU DO NOT HAVE A CONDITION THAT REQUIRES URGENT TREATMENT IN THE EMERGENCY DEPARTMENT. FURTHER EVALUATION AND TREATMENT OF YOUR CONDITION CAN WAIT UNTIL YOU ARE SEEN IN YOUR DOCTORS OFFICE WITHIN THE NEXT 1-2 DAYS. IT IS YOUR RESPONSIBILITY TO MAKE AN APPOINTMENT FOR FOLOW-UP CARE. IF YOU HAVE A PRIMARY DOCTOR --you should call your primary doctor and schedule and appointment IF YOU DO NOT HAVE A PRIMARY DOCTOR YOU CAN CALL OUR PHYSICIAN REFERRAL HOTLINE AT . IF YOU CAN NOT AFFORD TO SEE A PHYSICIAN YOU CAN CHOSE FROM THE FOLLOWING [facility] INSTITUTIONS: [facility] [address] [place] [address] [facility] [address] [place] [address] [facility] [address] [place] [address] [facility] URGENT CARE/SPECIALTIES Additional Instructions: Llame al doctor AYSHA y jeronimo nesha EDGARDO PARA DENTRO DE 2-3 HEBERT para un referido sloan a un urlogo.Dgale a la secretaria que nosotros le instruimos hacer esta edgardo.Avise o llame si lei condicin se empeora antes de la edgardo. Regresa aqui si peor o no mejor. AMEYA KIRK PA-C Sep 13, 2016 21:50 AMEYA KIRK PA-C Sep 13, 2016 21:50
== END 2016-09-13 21:34 | disposition home or self-care (01) ==
LOC: FTE 19:52
DX: R30.0 Dysuria (principal); I10 Essential (primary) hypertension; E03.9 Hypothyroidism, unspecified
CPT/HCPCS: 81003; 87086; 99283

== ENCOUNTER 2016-10-25 11:21 | Emergency (ER) | payer MEDICARE, OTHER ==
[~2016-10-25] VITALS: Ht 157.5 cm; Wt 56.0 kg
[~2016-10-25 11:21] MED LIST changes: +ACET325T33 PO; +CEPH-443 PO
[2016-10-25 11:25] VITALS: Ht 157.5 cm; Wt 56.0 kg
[2016-10-25] MEDS ORDERED: ACET500C5 PO (12:10)
[2016-10-25] MEDS ORDERED: ACYC800T57 PO (12:10)
--- NOTE | 2016-10-25 13:23 | ERD ---
ER Documentation Chief Complaint Date/Time DATE: 10/25/16 TIME: 13:14 Chief Complaint Complains of blisters and swelling of the tongue HPI 59-year-old female complaining of burning pain around her mouth and tongue 2 weeks. Patient stated that she frequently gets "outbreaks" around her lips, and usually after it going all silence father, or eating hot foods. They are blisterlike lesions around her lips and in her tongue. Currently, she thinks she has one small blister on the right side of her tongue. She is able to tolerate p.o. intake. Denies fever or chills. ROS All systems reviewed and are negative except as per history of present illness. Medications Home Meds Active Scripts Acyclovir* (Zovirax*) 800 Mg Tablet, 800 MG PO 5 TIMES DAILY for 7 Days, TAB Prov:TRAVIS JESUS NP 10/25/16 Acetaminophen* (Tylophen*) 500 Mg Capsule, 1 CAP PO Q6H Y for PAIN AND OR ELEVATED TEMP, #20 CAP Prov:TRAVIS JESUS NP 10/25/16 Acetaminophen* (Tylenol*) 325 Mg Tablet, 1 TAB PO Q6 Y for PAIN AND OR ELEVATED TEMP, #20 TAB Prov:AMEYA KIRK PA-C 09/13/16 Cephalexin* (Keflex*) 500 Mg Capsule, 500 MG PO QID for 7 Days, CAP Prov:AMEYA KIRK PA-C 09/13/16 Metoclopramide* (Reglan*) 10 Mg Tablet, 10 MG PO Q6H Y for NAUSEA AND OR VOMITING, #30 TAB Prov:PERLITA FABIAN MD 08/31/16 Pantoprazole* (Protonix*) 40 Mg Tablet.dr, 40 MG PO DAILY, #90 TAB Prov:PERLITA FABIAN MD 08/31/16 Reported Medications Benazepril Hcl* (Benazepril Hcl*) 40 Mg Tablet, 40 MG PO DAILY, #30 TAB 08/27/16 Levothyroxine Sodium* (Levothyroxine Sodium*) 75 Mcg Tablet, 75 MCG PO BEFORE BREAKFAST, #30 TAB 10/24/15 Allergies Allergies: Coded Allergies: No Known Allergies (Verified Allergy, Unknown, 02/20/15) PMhx/Soc History of Surgery: Yes () Anesthesia Reaction: No Hx Neurological Disorder: No Hx Respiratory Disorders: No Hx Cardiac Disorders: Yes (HTN) Hx Psychiatric Problems: No Hx Miscellaneous Medical Probl: No Hx Alcohol Use: No Hx Substance Use: No Hx Tobacco Use: No Smoking Status: Never smoker Physical Exam Vitals Vital Signs Date Time Temp Pulse Resp B/P Pulse Ox O2 Delivery O2 Flow Rate FiO2 10/25/16 11:25 98.9 85 20 165/74 99 Physical Exam General: Well-developed, well-nourished, conscious and coherent, in no distress Skin: Warm and dry without rash, good texture and turgor Head: Normocephalic without evidence of trauma Eyes: Sclera and conjunctivae normal; pupils equal, round, and reactive to light; extraocular movements are intact Ears: Canals are patent. Tympanic membranes are clear Nose/Face: Without rhinorrhea Mouth/throat: Mucous membranes are moist. Posterior pharynx clear without erythema or exudates. No lesions noted around her lips, and the mucosa, or on her tongue. One small area of tenderness on the right side of the tongue. Neck: Supple without meningismus or adenopathy. Carotids are equal. Trachea midline. No bruits or JVD Chest: Normal AP diameter. Good expansion without retractions. Nontender. Lungs are clear to auscultate bilaterally with good tidal volume Heart: Regular rate and rhythm. No murmur, rub, or gallops heard Abdomen: Soft and nontender without masses, guarding, or rebound. Bowel sounds are active. No hepatosplenomegaly Back: Without spinal or CVA tenderness Pelvis: Nontender to palpation and stable to compression Extremities: Full range of motion. Good strength bilaterally. No clubbing, cyanosis, or edema. Peripheral pulses are intact. Sensation intact Neuro: Alert and oriented 4, GCS 15. Cranial nerves grossly intact. Motor and sensory exams nonfocal. Moves all extremities. Speech clear. Gait normal Procedures/MDM Well-appearing 65-year-old female presented ED complaining of burning pain around her lips and in her tongue for last 2 weeks. Her exams are unremarkable. Based on her history, I suspect aphthous ulcer versus herpes simplex eruption. Acyclovir prescribed for patient. I explained to patient that hold acyclovir, and only take when she is having another outbreak. I doubt toxic shock syndrome, streptococcal scalded disease syndrome, toxic epidermal necrolysis, Olivares-Edil syndrome, [place] spotted fever. I doubt toxic shock syndrome, streptococcal scalded disease syndrome, toxic epidermal necrolysis, Olivares-Edil syndrome, [place] spotted fever. Patient appears well, stable for discharge and outpatient management. Medical decision making shared with patient and family. Education provided to patient and family. Patient and family expressed understanding of the plan. Medications on discharge: Tylenol, acyclovir. Follow-up: Primary care provider in 2-3 days or return to ED if worse. Disclaimer: Inadvertent spelling and grammatical errors are likely due to EHR/ dictation software use and do not reflect on the overall quality of patient care. Also, please note that the electronic time recorded on this note does not necessarily reflect the actual time of the patient encounter. Departure Diagnosis: Primary Impression: Tongue pain Condition: Stable Patient Instructions: Aphthous Ulcer, Herpes Labialis, Hsv: Type I [facility] Usted se caputo hecho un examen mdico de control que le indica que no est en nesha condicin que requiera tratamiento urgente en el Departamento de Emergencia. Un estudio ms profundo y el tratamiento de lei condicin pueden esperar sin ningn riesgo hasta que usted sea atendida/o en el consultorio de lei mdico o nesha cl nick. Es responsabilidad suya arreglar nesha edgardo para el seguimiento del roberto carlos. MANEJO DE CONDICIONES NO URGENTES EN EL FUTURO 1) Si usted tiene un mdico de atencin primaria: Usted debera llamar a lei mdico de atencin primaria antes de venir al departamento de emergencia. Despus de las horas de consultorio, lei doctor o lei asociado/a est disponible por telfono. El mdico o enfermero de torrie en el servicio telefnico puede asesorarle por john medio para atender el problema, o roberto carlos contrario se puede programar nesha edgardo. 2) Si usted no tiene un mdico de atencin primaria: Llame al mdico o clnica de referencia que aparece abajo stephie las horas de consultorio para hacer nesha edgardo para que le vean. CLINICAS: [place] [address] [phone] [facility] [phone] [place] [address] [phone] [place] [address] [phone] [place] [address] [phone] [facility] [phone] [address] Additional Instructions: Llame al doctor MAANA y jeronimo nesha EDGARDO PARA DENTRO DE 2-3 HEBERT.Dgale a la secretaria que nosotros le instruimos hacer esta edgardo.Avise o llame si lei condicin se empeora antes de la edgardo. Regresa aqui si peor o no mejor. TRAVIS JESUS NP Oct 25, 2016 13:23
== END 2016-10-25 12:46 | disposition home or self-care (01) ==
LOC: FTE 11:21
DX: K14.6 Glossodynia (principal); R40.2412 Glasgow coma scale score 13-15, at arrival to emergency department; I10 Essential (primary) hypertension
CPT/HCPCS: 99283

== ENCOUNTER 2016-12-13 02:22 | Emergency (ER) | payer MEDICARE, OTHER ==
[~2016-12-13] VITALS: Ht 154.9 cm; Wt 55.0 kg
[~2016-12-13 02:22] MED LIST changes: +ACET500C5 PO; +ACYC800T57 PO
[2016-12-13 02:32] VITALS: Ht 154.9 cm; Wt 55.0 kg
[2016-12-13] MEDS ORDERED: morphine 4 MG/ML VIAL IV STA (02:32)
[2016-12-13] MEDS ORDERED: ONDANSETRON 4 MG INJ IV STA (02:32)
[2016-12-13 03:21] LABS: ABNORMAL IP MESSAGE 1; HEMATOCRIT 29.2 % (37.0-47.0); HEMOGLOBIN 9.5 g/dl (12.0-16.0); MEAN CORPUSCULAR HEMOGLOBIN 31.9 pg (29.0-33.0); MEAN CORPUSCULAR HGB CONC 32.5 g/dl (32.0-37.0); MEAN PLATELET VOLUME 9.8 fl (7.4-10.4); NUCLEATED RED BLOOD CELLS% 0.2 /100WBC (0.0-0.0); PLATELET COUNT 111 10^3/UL (140-415); RED BLOOD COUNT 2.98 10^6/ul (4.20-5.40); RED CELL DISTRIBUTION WIDTH 14.4 % (11.5-14.5); WHITE BLOOD COUNT 11.9 10^3/ul (4.8-10.8)
[2016-12-13 03:32] LABS: POSITIVE DIFF @See below
[2016-12-13 03:39] LABS: ALANINE AMINOTRANSFERASE 33 IU/L (13-69); ALBUMIN 4.4 g/dl (3.3-4.9); ALBUMIN/GLOBULIN RATIO 1.22; ALKALINE PHOSPHATASE 108 IU/L (42-121); ANION GAP 12 (8-16); ASPARTATE AMINO TRANSFERASE 28 IU/L (15-46); BILIRUBIN,INDIRECT 1.2 mg/dl (0-1.1); BILIRUBIN,TOTAL 1.2 mg/dl (0.2-1.3); BLOOD UREA NITROGEN 13 mg/dl (7-20); CALCIUM 10.4 mg/dl (8.4-10.2); CARBON DIOXIDE 28 mmol/L (21-31); CHLORIDE 106 mmol/L (97-110); CREATININE 0.87 mg/dl (0.44-1.00); GLUCOSE 156 mg/dl (70-220); POTASSIUM 3.9 mmol/L (3.5-5.1); SODIUM 142 mmol/L (135-144)
--- NOTE | 2016-12-13 03:45 | RADRPT ---
PROCEDURE: XR Chest. CLINICAL INDICATION: Chest pain. TECHNIQUE: AP Portable chest. COMPARISON: No pertinent prior examinations were submitted for comparison. FINDINGS: The cardiomediastinal silhouette is normal.The aortic arch is calcified. No focal consolidation, ple ural effusion or pneumothorax is seen. The osseous structures are intact. IMPRESSION: No radiographic evidence of acute cardiopulmonary disease. Physician Debra Date Time Electronically viewed and signed by Keny Tijerina Physician on 12/13/2016 03:45 CS/
[2016-12-13 03:50] LABS: B-TYPE NATRIURETIC PEPTIDE 113 PG/ML (0-125)
[2016-12-13 04:17] LABS: TROPONIN-I < 0.012 ng/ml (0.00-0.12)
--- NOTE | 2016-12-13 05:40 | ERD ---
ER Documentation Chief Complaint Date/Time DATE: 12/13/16 TIME: 05:38 Chief Complaint cough/fever/chest pain x 1 day HPI This is a 66-year-old female sent cough fever chest pain for 1 day. Chest pain is right-sided, reproducible to touch, worse with cough, mild to moderate in intensity. Cough is mildly productive and, left for 3 days. Fevers is started today. No nausea no vomiting no chills. No sick contacts. No other current complaints. ROS All systems reviewed and are negative except as per history of present illness. Medications Home Meds Active Scripts Acyclovir* (Zovirax*) 800 Mg Tablet, 800 MG PO 5 TIMES DAILY for 7 Days, TAB Prov:TRAVIS JESUS NP 10/25/16 Acetaminophen* (Tylophen*) 500 Mg Capsule, 1 CAP PO Q6H Y for PAIN AND OR ELEVATED TEMP, #20 CAP Prov:TRAVIS JESUS. EMILIA 10/25/16 Acetaminophen* (Tylenol*) 325 Mg Tablet, 1 TAB PO Q6 Y for PAIN AND OR ELEVATED TEMP, #20 TAB Prov:AMEYA KIRK PA-C 09/13/16 Cephalexin* (Keflex*) 500 Mg Capsule, 500 MG PO QID for 7 Days, CAP Prov:AMEYA KIRK PA-C 09/13/16 Metoclopramide* (Reglan*) 10 Mg Tablet, 10 MG PO Q6H Y for NAUSEA AND OR VOMITING, #30 TAB Prov:PERLITA FABIAN MD 08/31/16 Pantoprazole* (Protonix*) 40 Mg Tablet.dr, 40 MG PO DAILY, #90 TAB Prov:PERLITA FABIAN MD 08/31/16 Reported Medications Benazepril Hcl* (Benazepril Hcl*) 40 Mg Tablet, 40 MG PO DAILY, #30 TAB 08/27/16 Levothyroxine Sodium* (Levothyroxine Sodium*) 75 Mcg Tablet, 75 MCG PO BEFORE BREAKFAST, #30 TAB 10/24/15 Allergies Allergies: Coded Allergies: No Known Allergies (Verified Allergy, Unknown, 12/13/16) PMhx/Soc History of Surgery: Yes (C-secction) Anesthesia Reaction: No Hx Neurological Disorder: No Hx Respiratory Disorders: No Hx Cardiac Disorders: Yes (HTN) Hx Psychiatric Problems: No Hx Miscellaneous Medical Probl: Yes (thyroid problems) Hx Alcohol Use: No Hx Substance Use: No Hx Tobacco Use: No (quit) Smoking Status: Former smoker Physical Exam Vitals Vital Signs Date Time Temp Pulse Resp B/P Pulse Ox O2 Delivery O2 Flow Rate FiO2 12/13/16 03:00 111 17 136/77 100 Room Air 12/13/16 02:32 101.0 125 20 159/74 97 Physical Exam Const: [] Head: Atraumatic Eyes: Normal Conjunctiva ENT: Normal External Ears, Nose and Mouth. Neck: Full range of motion..~ No meningismus. Resp: Clear to auscultation bilaterally Cardio: Regular rate and rhythm, no murmurs Abd: Soft, non tender, non distended. Normal bowel sounds Skin: No petechiae or rashes Back: No midline or flank tenderness Ext: No cyanosis, or edema Neur: Awake and alert Psych: Normal Mood and Affect Result Diagram: 12/13/16 0259 12/13/16 0259 Results 24 hrs Laboratory Tests Test 12/13/16 02:59 White Blood Count 11.910^3/ul Red Blood Count 2.9810^6/ul Hemoglobin 9.5g/dl Hematocrit 29.2% Mean Corpuscular Volume 98.0fl Mean Corpuscular Hemoglobin 31.9pg Mean Corpuscular Hemoglobin Concent 32.5g/dl Red Cell Distribution Width 14.4% Platelet Count 96171^3/UL Mean Platelet Volume 9.8fl Neutrophils % % Lymphocytes % % Monocytes % % Eosinophils % % Basophils % % Nucleated Red Blood Cells % 0.2/100WBC Neutrophils # 10^3/ul Lymphocytes # 10^3/ul Monocytes # 10^3/ul Eosinophils # 10^3/ul Basophils # 10^3/ul Nucleated Red Blood Cells # 10^3/ul Sodium Level 142mmol/L Potassium Level 3.9mmol/L Chloride Level 106mmol/L Carbon Dioxide Level 28mmol/L Anion Gap 12 Blood Urea Nitrogen 13mg/dl Creatinine 0.87mg/dl Glucose Level 156mg/dl Calcium Level 10.4mg/dl Total Bilirubin 1.2mg/dl Direct Bilirubin 0.00mg/dl Indirect Bilirubin 1.2mg/dl Aspartate Amino Transf (AST/SGOT) 28IU/L Alanine Aminotransferase (ALT/SGPT) 33IU/L Alkaline Phosphatase 108IU/L Troponin I < 0.012ng/ml B-Type Natriuretic Peptide 113PG/ML Total Protein 8.0g/dl Albumin 4.4g/dl Globulin 3.60g/dl Albumin/Globulin Ratio 1.22 Current Medications Medications (Trade) Dose Ordered Sig/Melinda Route PRN Reason Start Time Stop Time Status Last Admin Dose Admin Morphine Sulfate (morphine) 4 mg ONCE STAT IV 12/13/16 02:32 12/13/16 02:34 DC Ondansetron HCl (Zofran Inj) 4 mg ONCE STAT IV 12/13/16 02:32 12/13/16 02:34 DC 12/13/16 03:27 Procedures/MDM EKG: Rate/Rhythm: [Normal Sinus Rhythm] QRS, ST, T-waves: [No changes consistent w/ acute ischemia] Impression: [No evidence of ischemia or arrhythmia] Chest X-ray 1V Interpreted by me: Soft Tissue: No acute abnormalities Bones: No acute abnormalities Mediastinum/Cardiac Silhouette/Lungs: [No acute abnormalities] Patient's respiratory status has stabilized while in the department and is appropriate for outpatient work up. Exam and work up not consistent w/ impending respiratory failure or cardiovascular collapse. Myalgia consistent mostly with acute bronchitis. At this point she is feeling better. Patient will be discharged home with albuterol, azithromycin, prednisone. Follow with PCP. Also told to maintain tight control of her glucose and blood sugar levels given the fact that she will be on steroids. Departure Diagnosis: Primary Impression: Bronchitis Condition: Stable TG CARO Dec 13, 2016 05:40
[2016-12-13] MEDS ORDERED: PRED20TA PO (05:41)
[2016-12-13] MEDS ORDERED: AZIT250T94 PO (05:41)
[2016-12-13] MEDS ORDERED: ALBU18HF INHALATION (05:41)
[2016-12-13 05:45] VITALS: BP 120/70; PULSE 75; RESP 16
[2016-12-13 06:09] LABS: ANISOCYTOSIS 1+ (0-0); METAMYELOCYTES %M 2 % (0-0); MICROCYTOSIS 1+ (0-0); MONOCYTES % (M) 7 % (0-11); MYELOCYTES % (M) 1 % (0-0); POIKILOCYTOSIS 1+ (0-0); POLYCHROMASIA 2+ (0-0); REACTIVE LYMPHOCYTES% (M) 15 % (0-0)
== END 2016-12-13 06:00 | disposition home or self-care (01) ==
LOC: E/R 02:22
DX: J20.9 Acute bronchitis, unspecified (principal); I10 Essential (primary) hypertension; R06.00 Dyspnea, unspecified; R40.2142 Coma scale, eyes open, spontaneous, at arrival to emergency department; R40.2252 Coma scale, best verbal response, oriented, at arrival to emergency department; R40.2362 Coma scale, best motor response, obeys commands, at arrival to emergency department; Z87.891 Personal history of nicotine dependence
CPT/HCPCS: 36415; 71010; 80053; 83880; 84484; 85025; 93005; 96374; 99285; J2405; J2270

== ENCOUNTER 2017-01-08 17:38 | Emergency (ER) | payer MEDICARE, OTHER ==
[~2017-01-08] VITALS: Ht 157.5 cm; Wt 56.0 kg
[~2017-01-08 17:38] MED LIST changes: +ALBU18HF INHALATION; +AZIT250T94 PO; +PRED20TA PO
[2017-01-08 17:45] VITALS: Ht 157.5 cm; Wt 56.0 kg
[2017-01-08 19:29] LABS: URINE BLOOD (Dip) POC 1+ (NEGATIVE)
[2017-01-08] MEDS ORDERED: PHEN-538 PO (19:31)
[2017-01-08] MEDS ORDERED: CEPH-443 PO (19:31)
[2017-01-08 19:49] VITALS: PULSE 80; RESP 20; TEMP 97.9
--- NOTE | 2017-01-16 19:56 | ERD ---
ER Documentation Chief Complaint Chief Complaint dysuria x 3 days HPI Patient is a 66-year-old female presenting to the emergency department with complaints of burning with urination for 3 days. Symptoms are worse today. Symptoms are intermittent. The patient does have history of UTIs in the past. She denies fevers, chills, or other symptoms at this time. ROS All systems reviewed and are negative except as per history of present illness. Medications Home Meds Active Scripts Phenazopyridine Hcl* (Pyridium*) 200 Mg Tab, 200 MG PO TID Y for URINARY PAIN, # 6 TAB Prov:TG LAURA PA-C 01/08/17 Cephalexin* (Keflex*) 500 Mg Capsule, 500 MG PO QID for 5 Days, #20 CAP Prov:TG LAURA PA-C 01/08/17 Albuterol Sulfate* (Ventolin HFA*) 18 Gm Hfa.aer.ad, 2 PUFF INHALATION Q4H, #1 INHALER Prov:TG CARO 12/13/16 Prednisone* (Prednisone*) 20 Mg Tab, 40 MG PO DAILY for 4 Days, TAB Prov:TG CARO 12/13/16 Azithromycin* (Zithromax*) 250 Mg Tablet, 250 MG PO .RichPACK DIRECTED, #6 TAB TAKE 500 MG (2 TABS) THE FIRST DAY THEN 250 MG (1 TAB) DAYS 2-5 Prov:TG CARO 12/13/16 Acyclovir* (Zovirax*) 800 Mg Tablet, 800 MG PO 5 TIMES DAILY for 7 Days, TAB Prov:TRAVIS JESUS NP 10/25/16 Acetaminophen* (Tylophen*) 500 Mg Capsule, 1 CAP PO Q6H Y for PAIN AND OR ELEVATED TEMP, #20 CAP Prov:TRAVIS JESUS. [employer] 10/25/16 Acetaminophen* (Tylenol*) 325 Mg Tablet, 1 TAB PO Q6 Y for PAIN AND OR ELEVATED TEMP, #20 TAB Prov:AMEYA KIRK PA-C 09/13/16 Cephalexin* (Keflex*) 500 Mg Capsule, 500 MG PO QID for 7 Days, CAP Prov:AMEYA KIRK PA-C 09/13/16 Metoclopramide* (Reglan*) 10 Mg Tablet, 10 MG PO Q6H Y for NAUSEA AND OR VOMITING, #30 TAB Prov:PERLITA FABIAN MD 08/31/16 Pantoprazole* (Protonix*) 40 Mg Tablet.dr, 40 MG PO DAILY, #90 TAB Prov:PERLITA FABIAN MD 08/31/16 Reported Medications Benazepril Hcl* (Benazepril Hcl*) 40 Mg Tablet, 40 MG PO DAILY, #30 TAB 08/27/16 Levothyroxine Sodium* (Levothyroxine Sodium*) 75 Mcg Tablet, 75 MCG PO BEFORE BREAKFAST, #30 TAB 10/24/15 Allergies Allergies: Coded Allergies: No Known Allergies (Verified Allergy, Unknown, 12/13/16) PMhx/Soc History of Surgery: Yes (C-secction) Anesthesia Reaction: No Hx Neurological Disorder: No Hx Respiratory Disorders: No Hx Cardiac Disorders: Yes (HTN) Hx Psychiatric Problems: No Hx Miscellaneous Medical Probl: Yes (thyroid problems) Hx Alcohol Use: No Hx Substance Use: No Hx Tobacco Use: No (quit) Smoking Status: Former smoker Physical Exam Physical Exam Const: Nontoxic, well-appearing female in no acute distress. Head: Atraumatic Eyes: Normal Conjunctiva ENT: Normal External Ears, Nose and Mouth. Neck: Full range of motion..~ No meningismus. Resp: Clear to auscultation bilaterally Cardio: Regular rate and rhythm, no murmurs Abd: Soft, non tender, non distended. Normal bowel sounds Skin: No petechiae or rashes Back: No midline or flank tenderness and no CVA tenderness. Ext: No cyanosis, or edema Neur: Awake and alert Psych: Normal Mood and Affect Results 24 hrs Laboratory Tests Test 01/08/17 19:28 Bedside Urine pH (LAB) 6.0 Bedside Urine Protein (LAB) Negative Bedside Urine Glucose (UA) Negative Bedside Urine Ketones (LAB) Negative Bedside Urine Blood 1+ Bedside Urine Nitrite (LAB) Negative Bedside Urine Leukocyte Esterase (L Trace Procedures/MDM Patient is a 66-year-old female presented to the emergency department with complaints of dysuria. History and physical examination consistent with urinary tract infection. There was trace leukocytes noted in the urine, and so given her symptoms and these findings I will treat her with Keflex and Pyridium. Low suspicion for pyelonephritis, sepsis, or other emergent conditions. Pt/family in agreement with discharge plan/diagnosis. Pt/family advised to return immediately with any new or worsening symptoms. Follow-up with primary care physician within the next 1-2 days. Disclaimer: Inadvertent spelling and grammatical errors are likely due to EHR/ dictation software use and do not reflect on the overall quality of patient care. Also, please note that the electronic time recorded on this note does not necessarily reflect the actual time of the patient encounter. Departure Diagnosis: Primary Impression: Urinary tract infection Urinary tract infection type: site unspecified Hematuria presence: without hematuria Qualified Code: N39.0 - Urinary tract infection without hematuria, site unspecified Condition: Fair Patient Instructions: Understanding Urinary Tract Infections (UTIs) Referrals: [facility] YOU HAVE RECEIVED A MEDICAL SCREENING EXAM AND THE RESULTS INDICATE THAT YOU DO NOT HAVE A CONDITION THAT REQUIRES URGENT TREATMENT IN THE EMERGENCY DEPARTMENT. FURTHER EVALUATION AND TREATMENT OF YOUR CONDITION CAN WAIT UNTIL YOU ARE SEEN IN YOUR DOCTORS OFFICE WITHIN THE NEXT 1-2 DAYS. IT IS YOUR RESPONSIBILITY TO MAKE AN APPOINTMENT FOR FOLOW-UP CARE. IF YOU HAVE A PRIMARY DOCTOR --you should call your primary doctor and schedule an appointment IF YOU DO NOT HAVE A PRIMARY DOCTOR YOU CAN CALL OUR PHYSICIAN REFERRAL HOTLINE AT IF YOU CAN NOT AFFORD TO SEE A PHYSICIAN YOU CAN CHOSE FROM THE FOLLOWING [facility] [address] [facility]. [facility] [address] [facility] [address] [facility] [facility] [address] [facility] [facility] [address] [facility]. [facility]. [address] Additional Instructions: Follow up with your PCP within the next 1-3 days for a repeat evaluation. If you require a referral to a specialist, your Primary Care Provider may be able to provide this for you. In most patient cases, a referral is not required. If you have further questions regarding this matter, please ask your Primary Care Provider. Return the the emergency department immediately if symptoms worsen or change. If you have any questions regarding medications, ask your pharmacist or us before you leave. If any adverse reactions, occur while taking your medications, discontinue the treatment and return to the emergency department immediately. If any new or worsening symptoms, uncontrolled fevers, or other unexplained symptoms occur, return to the emergency department immediately. Take your medications as directed, and complete the entire course of treatment. TG LAURA PA-C Jan 16, 2017 19:56
== END 2017-01-08 19:45 | disposition home or self-care (01) ==
LOC: FTE 17:38
DX: N39.0 Urinary tract infection, site not specified (principal); I10 Essential (primary) hypertension; Z87.891 Personal history of nicotine dependence
CPT/HCPCS: 81003; 99283

== ENCOUNTER 2018-05-31 10:18 | Emergency (ER) | payer MEDICARE, OTHER ==
[~2018-05-31] VITALS: Ht 157.5 cm; Wt 61.1 kg
[~2018-05-31 10:18] MED LIST changes: +ACYC800T5 PO; -ACYC800T57 PO; +AZIT250T PO; -AZIT250T94 PO; -BENA40TA41 PO; +BENA40TA56 PO; +PHEN-538 PO
[2018-05-31 10:21] VITALS: BP 163/68; PULSE 94; RESP 18; Ht 157.5 cm; Wt 61.1 kg
[2018-05-31] MEDS ORDERED: ELIM TOP (10:57)
--- NOTE | 2018-05-31 12:49 | ERD ---
ER Documentation Chief Complaint Chief Complaint total body rash x 4 days HPI 67-year-old female presenting with body rash times 4 days. She states that the rashes in her groin area is very itchy. She also has a rash on her hands. Patient has not use any medications on the symptoms. Denies other medical problems. NKDA. Surgical history denies. Social history denies ROS All systems reviewed and are negative except as per history of present illness. Medications Home Meds Active Scripts Permethrin* (Elimite*) 5% Cr, 1 APPLIC TOP ONCE, #1 TUB Prov:NIURKA RIVERS PA-C 05/31/18 Phenazopyridine Hcl* (Pyridium*) 200 Mg Tab, 200 MG PO TID PRN for URINARY PAIN, #6 TAB Prov:TG LAURA PA-C 01/08/17 Cephalexin* (Keflex*) 500 Mg Capsule, 500 MG PO QID for 5 Days, #20 CAP Prov:TG LAURA PA-C 01/08/17 Albuterol Sulfate* (Ventolin HFA*) 18 Gm Hfa.aer.ad, 2 PUFF INHALATION Q4H, #1 INHALER Prov:TG CARO 12/13/16 Prednisone* (Prednisone*) 20 Mg Tab, 40 MG PO DAILY for 4 Days, TAB Prov:TG CARO 12/13/16 Azithromycin* (Zithromax*) 250 Mg Tablet, 250 MG PO .ZPACK DIRECTED, #6 TAB TAKE 500 MG (2 TABS) THE FIRST DAY THEN 250 MG (1 TAB) DAYS 2-5 Prov:TG CARO 12/13/16 Acyclovir* (Zovirax*) 800 Mg Tablet, 800 MG PO 5 TIMES DAILY for 7 Days, TAB Prov:TRAVIS JESUS. BANQUET PREP COOK 10/25/16 Acetaminophen* (Tylophen*) 500 Mg Capsule, 1 CAP PO Q6H PRN for PAIN AND OR ELEVATED TEMP, #20 CAP Prov:TRAVIS JESUS. BANQUET PREP COOK 10/25/16 Acetaminophen* (Tylenol*) 325 Mg Tablet, 1 TAB PO Q6 PRN for PAIN AND OR ELEVATED TEMP, #20 TAB Prov:AMEYA KIRK PA-C 09/13/16 Cephalexin* (Keflex*) 500 Mg Capsule, 500 MG PO QID for 7 Days, CAP Prov:AMEYA KIRK PA-C 09/13/16 Metoclopramide* (Reglan*) 10 Mg Tablet, 10 MG PO Q6H PRN for NAUSEA AND OR VOMITING, #30 TAB Prov:PERLITA FABIAN MD 08/31/16 Pantoprazole* (Protonix*) 40 Mg Tablet.dr, 40 MG PO DAILY, #90 TAB Prov:PERLITA FABIAN MD 08/31/16 Reported Medications Benazepril Hcl* (Benazepril Hcl*) 40 Mg Tablet, 40 MG PO DAILY, #30 TAB 08/27/16 Levothyroxine Sodium* (Levothyroxine Sodium*) 75 Mcg Tablet, 75 MCG PO BEFORE BREAKFAST, #30 TAB 10/24/15 Allergies Allergies: Coded Allergies: No Known Allergies (Verified Allergy, Unknown, 05/31/18) PMhx/Soc History of Surgery: Yes (C-secction) Anesthesia Reaction: No Hx Neurological Disorder: No Hx Respiratory Disorders: No Hx Cardiac Disorders: Yes (HTN) Hx Psychiatric Problems: No Hx Miscellaneous Medical Probl: Yes (thyroid problems) Hx Alcohol Use: No Hx Substance Use: No Hx Tobacco Use: No (quit) Smoking Status: Never smoker FmHx Family History: No diabetes, No coronary disease, No other Physical Exam Vitals Vital Signs Date Temp Pulse Resp B/P (MAP) Pulse Ox O2 O2 Flow FiO2 Time Delivery Rate 05/31/18 98.4 94 18 163/68 97 10:21 (99) Physical Exam GENERAL: The patient is well-appearing, well-nourished, in no acute distress CHEST: Clear to auscultation bilaterally. There are no rales, wheezes or rhonchi. HEART: Regular rate and rhythm. No murmurs, clicks, rubs or gallops. SKIN: Erythematous papules noted to the hands and inguinal region. No vesicles or pustules. Procedures/MDM MDM: 67-year-old female presenting with rash. I will treat for possible scabies infestation. I have low suspicion for life-threatening rash. Patient is discharged stricter precautions and told to follow-up with primary care. Patient is told symptoms change or worsen to return immediately to the ER. All questions answered at discharge Departure Diagnosis: Primary Impression: Rash Additional Impression: Rash and other nonspecific skin eruption Condition: Stable Patient Instructions: Self-Care for Skin Rashes Referrals: [facility] YOU HAVE RECEIVED A MEDICAL SCREENING EXAM AND THE RESULTS INDICATE THAT YOU DO NOT HAVE A CONDITION THAT REQUIRES URGENT TREATMENT IN THE EMERGENCY DEPARTMENT. FURTHER EVALUATION AND TREATMENT OF YOUR CONDITION CAN WAIT UNTIL YOU ARE SEEN IN YOUR DOCTORS OFFICE WITHIN THE NEXT 1-2 DAYS. IT IS YOUR RESPONSIBILITY TO MAKE AN APPOINTMENT FOR FOLOW-UP CARE. IF YOU HAVE A PRIMARY DOCTOR --you should call your primary doctor and schedule an appointment IF YOU DO NOT HAVE A PRIMARY DOCTOR YOU CAN CALL OUR PHYSICIAN REFERRAL HOTLINE AT IF YOU CAN NOT AFFORD TO SEE A PHYSICIAN YOU CAN CHOSE FROM THE FOLLOWING [facility] CLINICS [facility] [address] [facility] [address] [address] [facility] [address] [facility] [address] [facility] [address] [facility]. [facility] [address] Additional Instructions: FOLLOW UP WITH YOUR PRIMARY CARE PHYSICIAN TOMORROW.Return to this facility if you are not improving as expected. NIURKA RIVERS PA-C May 31, 2018 12:49
== END 2018-05-31 11:15 | disposition home or self-care (01) ==
LOC: FTE 10:18
DX: R21 Rash and other nonspecific skin eruption (principal); I10 Essential (primary) hypertension
CPT/HCPCS: 99282